=== PATIENT | male | born 1935 | race Caucasian/White ===

== ENCOUNTER 2021-09-03 11:01 | Emergency (ER) | payer MEDICARE, OTHER ==
--- NOTE | 2021-09-03 11:37 | ED Physician Documentation ---
History of Present Illness - Stated complaint Stated Complaint: Right hand weakness - Chief complaint Chief Complaint: Neuro - History obtained from History obtained from: Patient - Additonal information Additional information: The patient comes to the emergency department with chief complaint of right hand weakness that he first noticed when he woke up this morning at 7:00. He states that he was feeling completely fine yesterday evening when he went to bed, and that he woke up at 4:00 this morning to go to the bathroom and is pretty sure that he did not have any weakness at that time either though he cannot be entirely certain. He states that when he first got up this morning, he did not realize his hand was weak until he started trying to sort his pills and realized that he was clumsy with opposition. He also noticed when trying to button his shirt that fine motor opposition with his right fingers was difficult. The patient is right-hand dominant. He denies any other neurologic deficits. He was able to ambulate normally and did not feel any weakness or dragging of his right lower extremity. He denies any facial droop, visual changes, or difficulty speaking or swallowing. No headache or nausea. He lives at home with his and still exercises and golfs. 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 He states he has had a few TIAs in the past, for which she completely recovered. He states that these did not involve any specific extremity weakness, but coordination or cranial nerve deficits. The patient states he feels that the symptoms have probably improved by about "10%" since 8:00 this morning. The patient has a past medical history of hyperlipidemia, paroxysmal a flutter, and coronary artery disease with stent placement. 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 Review of Systems Ten Systems: 10 systems reviewed and negative Constitutional: reports: Reviewed and negative Eyes: reports: Reviewed and negative Ears: reports: Reviewed and negative Nose: reports: Reviewed and negative Throat: reports: Reviewed and negative Cardiac: reports: Reviewed and negative Respiratory: reports: Reviewed and negative GI: reports: Reviewed and negative : reports: Reviewed and negative Skin: reports: Reviewed and negative Musculoskeletal: reports: Reviewed and negative Neurologic: reports: Focal weakness Psychiatric: reports: Reviewed and negative Endocrine: reports: Reviewed and negative Immunocompromised: reports: Reviewed and negative PD PAST MEDICAL HISTORY - Past Medical History Cardiovascular: HI - Past Surgical History Past Surgical History: Yes Ortho: Hip replacement, Rotator cuff repair Cardiovascular: Coronary stent - Present Medications Home Medications: Ambulatory Orders Medication Instructions Recorded Confirmed Aspirin [Aspir-Low] 1 tab PO DAILY 03/05/16 09/03/21 Clopidogrel [Plavix] 1 tab PO DAILY 03/05/16 09/03/21 Simvastatin [Zocor] 40 mg PO DAILY 03/05/16 09/03/21 lisinopriL [Lisinopril] 1 tab PO DAILY 03/05/16 09/03/21 - Allergies Allergies/Adverse Reactions: Allergies Allergy/AdvReac Type Severity Reaction Status Date / Time codeine Allergy Nausea Verified 09/03/21 11:14 - Social History Does the pt smoke?: No Smoking Status: Never smoker Does the pt drink ETOH?: Yes Does the pt have substance abuse?: No - Immunizations Immunizations are current?: Yes PD ED PE NORMAL - Vitals Vital signs reviewed: Yes - General General: Alert and oriented X 3, No acute distress, Well developed/nourished - HEENT HEENT: Atraumatic, PERRL, EOMI, Moist mucous membranes - Neck Neck: Supple, no meningeal sign - Cardiac Cardiac: RRR, No murmur, Strong equal pulses - Respiratory Respiratory: No respiratory distress, Clear bilaterally - Abdomen Abdomen: Soft, Non tender, Non distended - Derm Derm: Normal color, Warm and dry, No rash - Extremities Extremities: No deformity, No edema, No calf tenderness / cord - Neuro Neuro: Alert and oriented X 3, bottle inspector 2-12 intact, No sensory deficit, Normal speech, Other (5+ strength Bilateral upper extremities, though Finger extension on right is mildly decreased, secondary to weakness. [id number] testing on right is slowed and slightly clumsier than on left, though patient can complete test. Romberg equal.) - Psych Psych: Normal mood, Normal affect Results - Vitals Vitals: Vital Signs - 24 hr 09/03/21 09/03/21 09/03/21 11:03 13:18 14:40 Temperature 37.2 C Heart Rate 62 51 L 47 L Respiratory 22 16 19 Rate Blood Pressure 141/76 H 126/74 114/66 O2 Saturation 99 100 100 09/03/21 15:23 Temperature Heart Rate 50 L Respiratory 19 Rate Blood Pressure 122/75 O2 Saturation 99 Oxygen O2 Source Room air - Labs Labs: Laboratory Tests 09/03/21 09/03/21 09/03/21 11:38 11:38 12:51 WBC 6.3 RBC 4.86 Hgb 14.5 Hct 44.9 MCV 92.4 MCH 29.8 MCHC 32.3 RDW 16.3 H Plt Count 169 MPV 9.5 Neut # (Auto) 4.7 Lymph # (Auto) 1.0 L Mcdonald # (Auto) 0.4 Eos # (Auto) 0.1 Baso # (Auto) 0.1 Absolute Nucleated RBC 0.00 Nucleated RBC % 0.0 PT 11.9 INR 1.1 Sodium 139 Potassium 4.6 Chloride 105 Carbon Dioxide 24 Anion Gap 10.0 BUN 27 H Creatinine 1.3 H Estimated GFR (MDRD) 52 L Glucose 106 H Calcium 8.8 Total Bilirubin 1.1 H AST 26 ALT 20 Alkaline Phosphatase 62 Total Protein 6.2 L Albumin 3.8 Globulin 2.4 Albumin/Globulin Ratio 1.6 Lipase 52 H - Rads (name of study) CT head noncontrast Radiology: Final report received, EMP read indepedently, See rad report (age- appropriate changes; no acute ischemia) MR Brain noncontrast Radiology: Final report received, See rad report (small L frontal acute vs subacute infarct) carotid doppler US Radiology: Final report received, See rad report PD MEDICAL DECISION MAKING - ED course Complexity details: reviewed results, re-evaluated patient, considered differential, d/w patient ED course: The patient overall was fairly well-appearing and did report mild improvement of symptoms. However, he did have some identifiable weakness in the right upper extremity compared to the left, and I felt that he should be evaluated for this. I did not feel, given the unclear onset of symptoms, the amount of time that had elapsed, the mild degree of severity of symptoms, and the sense of improvement, that this patient would be a candidate for TPA. CT of the brain was negative for acute findings. MRI showed small L frontal infarct, consistent with pt's deficits. Carotid doppler showed <50% stenosis on both sides. I discussed the case with the pt's PCP, Dr. Vangie Servin, who is based in [place]. We do not have echocardiogram capability today, and I expressed to her that I would like to have the pt get an expedited echo to follow up on this. He does not have a murmur, and is in sinus rhythm on his EKG, and my suspicion for thromboembolism from the heart is low. However, for completeness, this should be done, and Dr. Servin agreed. She stated she would have her office call the pt first thing tomorrow morning to arrange an appointment. I re-evaluated the pt, who felt that he was still improving. We discussed the plan for close f/u with Dr. Servin, and he was in agreement. He is already on both Plavix and ASA, and should continue both of these. We have discussed the usual indications for return. Departure - Departure Disposition: 01 Home, Self Care Clinical Impression: TIA (transient ischemic attack) Condition: Stable Instructions: ED Transient Ischemic Attack Comments: As we have discussed, your MRI shows a small area of ischemia/infarction in your left frontal lobe, corresponding to the symptoms of right hand and finger weakness that you are having. The remainder of your tests actually look fairly good. Your carotid ultrasound shows good flow through both carotids without significant blockage. Your EKGs show a normal sinus rhythm with a rate that is on the low end of normal. You have had occasional pauses in your rhythm, but these have not been associated with any symptoms, which is reassuring. Your case has been discussed with your primary care physician Dr. Vangie Servin. She says her office will give you call first thing tomorrow morning to work with you on setting up a time to get an echocardiogram done. She would also like to potentially talk to about wearing an event monitor again. If you do not hear from Dr. Servin's office in the morning, please give them a call to touch base. Please continue your Plavix and aspirin each day as you have been doing. If you develop any severely worsening symptoms or any concerns, please return to the emergency department. Discharge Date/Time: 09/03/21 15:30
[2021-09-03 11:44] LABS: BASOPHILS # (AUTO) 0.1 10^3/uL (0.0-0.1); BASOPHILS % (AUTO) 0.9 %; EOSINOPHILS # (AUTO) 0.1 10^3/uL (0.0-0.7); EOSINOPHILS % (AUTO) 1.4 %; HCT - HEMATOCRIT 44.9 % (42.0-52.0); HGB - HEMOGLOBIN 14.5 g/dL (14.0-18.0); LYMPHOCYTES % (AUTO) 15.5 %; MEAN CORPUSCULAR HEMOGLOBIN 29.8 pg (27.0-31.0); MEAN CORPUSCULAR HGB CONC 32.3 g/dL (32.0-36.0); MEAN CORPUSCULAR VOLUME 92.4 fL (80.0-94.0); MEAN PLATELET VOLUME 9.5 fL (7.4-11.4); MONOCYTES # (AUTO) 0.4 10^3/uL (0.0-1.0); NEUTROPHILS # (AUTO) 4.7 10^3/uL (1.5-6.6); NEUTROPHILS % (AUTO) 74.9 %; PLT - PLATELET COUNT 169 10^3/uL (130-450); RED BLOOD COUNT 4.86 10^6/uL (4.70-6.10); RED CELL DISTRIBUTION WIDTH 16.3 % (12.0-15.0); WHITE BLOOD COUNT 6.3 x10^3/uL (4.8-10.8)
[2021-09-03 11:55] LABS: ALBUMIN 3.8 g/dL (3.2-5.5); ALBUMIN/GLOBULIN RATIO 1.6 (1.0-2.2); BILIRUBIN,TOTAL 1.1 mg/dL (0.2-1.0); CALCIUM 8.8 mg/dL (8.5-10.3); CREATININE 1.3 mg/dL (0.6-1.2); POTASSIUM 4.6 mmol/L (3.5-5.0); TOTAL PROTEIN 6.2 g/dL (6.7-8.2)
--- NOTE | 2021-09-03 12:40 | CT Report ---
PROCEDURE: HEAD WO INDICATIONS: R hand weakness TECHNIQUE: Noncontrast 4.5 mm thick angled axial sections acquired from the foramen magnum to the vertex. For r adiation dose reduction, the following was used: automated exposure control, adjustment of mA and/or kV according to patient size. COMPARISON: None. FINDINGS: Image quality: Excellent. CSF spaces: Basal cisterns are patent. No extra-axial fluid collections. Ventricles are normal in size and shape. Brain: No midline shift. No intracranial masses or hemorrhage. Garcia-white matter interface is norm al. 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 Ag e-appropriate brain parenchymal volume loss and chronic small vessel ischemic change can be seen. Skull and face: Calvarium and visualized facial bones are intact, without suspicious lesions. Sinuses: Visualized sinuses and mastoids are clear. IMPRESSION: No imaging explanation is found for the patient's presenting symptoms. No intracranial hemorrhage is seen. If there is strong clinical concern for a stroke, please consider a dedicated brain MRI for further e valuation (assuming that there is no contraindication to MRI). 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 This is considered to be unrelated to the patient's acute presenting history of right hand weakness. Reviewed by: Donald Andino MD on 09/03/2021 11:38 AM AUGUSTINE Approved by: Donald Andino MD on 09/03/2021 11:38 AM AUGUSTINE Station ID: [id number]
--- NOTE | 2021-09-03 12:45 | MRI Report ---
PROCEDURE: Brain W/O INDICATIONS: R hand weakness TECHNIQUE: Noncontrast axial T1 spin echo, axial T2 fast spin echo, sagittal and axial FLAIR, coronal T2 fast sp in echo, axial gradient echo, axial diffusion and ADC through the brain. COMPARISON: Correlation is made with the accompanying head CT, 09/03/2021. FINDINGS: Image quality: Excellent. CSF Spaces: Basal cisterns are patent. No extra-axial fluid collections. Ventricles are normal in size and shape. Brain: There is a small focus of abnormal diffusion weighted hyperintensity seen within the left pos terior frontal lobe, as on series 906 images 18 and 19. There is associated abnormal dark signal seen on the ADC map. No intracranial masses or hemorrhage. Garcia/white matter interface is normal. Brainstem appears norm al. Normal intravascular flow voids are present. Age-appropriate brain parenchymal volume loss and chronic small vessel ischemic change can be seen. There is a remote right lateral temporal lobe infarction seen, with volume loss and encephalomalacia. No abnormal hemosiderin deposition can be seen within this region. Skull and face: Calvarium has normal marrow signal. Orbits appear normal. Sinuses: Mild mucosal thickening is seen within the anterior ethmoid air cells. The paranasal sinuses otherwise appear clear. No abnormal mastoid air cell fluid can be seen. IMPRESSION: Small acute/subacute infarction seen involving the posterior aspect of the left frontal lobe. This co rresponds well with the presenting history of acute right hand weakness. There is a remote right temporal lobe infarction also seen. Reviewed by: Donald Andino MD on 09/03/2021 11:44 AM AUGUSTINE Approved by: Donald Andino MD on 09/03/2021 11:44 AM AUGUSTINE Station ID: [id number]
[2021-09-03] MEDS ORDERED: ASPIRIN CHEW 81 MG TABLET PO STA (12:58)
[2021-09-03 13:03] LABS: INR 1.1 (0.8-1.2); PT - PROTHROMBIN TIME 11.9 secs (9.9-12.6)
[2021-09-03 15:24] VITALS: BP 122/75
--- NOTE | 2021-09-03 16:16 | Ultrasound Report ---
PROCEDURE: Carotid Doppler Complete INDICATIONS: stroke TECHNIQUE: Color and pulse Doppler interrogation was performed of both carotid systems, with image documentation and velocity measurements. COMPARISON: None. FINDINGS: Right side: Brachial blood pressure: 127/71 mm Hg. Common carotid artery peak systolic velocity: 79 cm/sec. Internal carotid artery peak systolic velocity: 71 cm/sec. Internal carotid artery end diastolic velocity: 21 cm/sec. External carotid artery peak systolic velocity: 89 cm/sec. ICA/CCA peak systolic ratio: 0.9. Garcia scale imaging description: Moderate calcified and noncalcified plaque Percent internal carotid artery stenosis: Less than 50% stenosis. Vertebral artery: Flow direction is antegrade. Left side: Brachial blood pressure: 124/72 mm Hg. Common carotid artery peak systolic velocity: 76 cm/sec. Internal carotid artery peak systolic velocity: 64 cm/sec. Internal carotid artery end diastolic velocity: 22 cm/sec. External carotid artery peak systolic velocity: 76 cm/sec. ICA/CCA peak systolic ratio: 0.9. Garcia scale imaging description: Moderate calcified and noncalcified plaque Percent internal carotid artery stenosis: Less than 50% stenosis. Vertebral artery: Flow direction is antegrade. IMPRESSION: 1. Right ICA: Less than 50% stenosis. 2. Left ICA: Less than 50% stenosis. 3. Antegrade flow in the vertebral arteries. The estimate of stenosis included in the report of the imaging study was calculated using the NASCET method Reviewed by: David Duran MD on 09/03/2021 4:15 PM PDT Approved by: David Duran MD on 09/03/2021 4:15 PM PDT Station ID: [id number]
== END 2021-09-03 15:30 | disposition home or self-care (01) ==
LOC: ED 11:01
DX: G45.9 Transient cerebral ischemic attack, unspecified (principal)
CPT/HCPCS: 36415; 80053; 83690; 85025; 85610; 93005; 93880; 99283; 99284